=== PATIENT | male | born 1990 | race Two or more races ===

== ENCOUNTER 2023-04-28 12:08 | Outpatient (AMB) | payer BC, SELFPAY ==
--- NOTE | 2023-04-28 12:59 | MHC.OFFWIV ---
Intake Vital Signs 04/28/23 13:00 Height 5 ft 8 in Weight 198 lb 8 oz BMI 30.2 BP 112/70 Blood Pressure Location Rt brachial Position Sitting Pulse 57 Pulse Source Pulse Oximeter Temp 96.3 F L Temp Source Temporal Artery Scan Pulse Oximetry (%) 99 Oxygen Delivery Method Room Air Intake Visit Reasons: [employer], Outbreak/ Med refill Intake Note: Pt is here requesting med refill on Valacyclovir 500 mg Patient Tobacco Use Status: Never used Tobacco Allergies No Known Allergies Allergy (Verified 04/28/23 13:00) Do you need a note to return to daycare/school/sports/work: No HPI [employer], Outbreak/ Med refill HPI Details 32 year old male patient presents today with request for valacyclovir refill for genital HSV outbreak. He recently moved to [facility] and an appointment in August to establish care with a new PCP, however has seen them yet. Reports he responds well to Valtrex. [facility] Social History Patient Tobacco Use Status: Never used Tobacco Review of Systems Const All systems reviewed & are unremarkable except as noted in HPI and below Physical Exam Vital Signs: Last Vital Signs Temp 96.3 F L 04/28/23 13:00 Pulse 57 04/28/23 13:00 BP 112/70 04/28/23 13:00 Pulse Ox 99 04/28/23 13:00 Oxygen Delivery Method Room Air 04/28/23 13:00 BMI result Body Mass Index 30.2 Const General: cooperative, healthy appearing, comfortable and no acute distress Nutritional Appearance: average body habitus Resp Effort & Inspection: normal respiratory effort and able to speak in complete sentences Psych Appearance: grossly normal Mental Status: mental status grossly normal Speech and movement: Normal speech and movement present Affect: normal affect Assessment & Plan Assessment & Plan (1) Genital HSV: Code(s): A60.00 - Herpesviral infection of urogenital system, unspecified Qualifiers: Herpes simplex infection site: unspecified Qualified Code(s): A60.00 - Herpesviral infection of urogenital system, unspecified Plan: Valtrex refill provided for patient. History of HSV which responds well to Valtrex when outbreaks occur. Reviewed use of medication. Patient has visit to establish care with PCP in few months. All questions were answered. Medications: New valacyclovir 500 mg PO TID 90 tabs 1RF 30 days A60.00 - Herpesviral infection of urogenital system, unspecified Coding Level of Care Code Est Pt Level 3 (83555) Diagnoses Genital herpes simplex, unspecified site A60.00 Herpes simplex infection site: unspecified
[2023-04-28 13:00] VITALS: BP 112/70; PULSE 57; TEMP 35.7; O2SAT 99; BMI 30.2
== END 2023-04-28 13:13 | disposition home or self-care (01) ==
PROVIDERS: PCP Nurse Practitioner Family; Visit Provider Nurse Practitioner Family
DX: A60.00 Herpesviral infection of urogenital system, unspecified (principal)
CPT/HCPCS: 99213